=== PATIENT | male | born 1940 | race Caucasian/White ===

== ENCOUNTER 2025-06-15 12:03 | Inpatient (IN) | payer MEDICARE, OTHER ==
[~2025-06-15] VITALS: Ht 188 cm; Wt 77.1 kg
[2025-06-15] MEDS: IV NS 0.9% 500 ML BAG IV ONE (12:37)
[2025-06-15 12:43] LABS: PLATELET COUNT (AUTO) 249 K/uL (150-450); RED BLOOD CELL COUNT(AUTO) 4.05 MIL/uL (4.5-6.0); RED CELL DISTRIBUTION WIDTH 14.1 % (11.5-15.0); WHITE BLOOD COUNT (AUTO) 5.7 K/uL (4.3-11.0)
[2025-06-15 12:59] LABS: CALCIUM, SERUM 8.9 mg/dL (8.5-10.1); CREATININE 0.9 mg/dL (0.6-1.3); SODIUM SERUM 133 mmol/L (136-145); UREA NITROGEN, BLOOD 10 mg/dL (7-18)
[2025-06-15] MEDS ORDERED: ACETAMINOPHEN 325 MG TABLET PO PRN (13:30)
[2025-06-15] MEDS ORDERED: hydrALAZINE HCL IV 20 MG VIAL IV PRN (13:30)
[2025-06-15] MEDS ORDERED: MORPHINE SULFATE INJ 2 MG/ML DISP.SYRIN IV PRN (13:30)
[2025-06-15] MEDS ORDERED: ONDANSETRON HCL/PF 4 MG/2 ML VIAL IVP PRN (13:30)
[2025-06-15] MEDS ORDERED: BISA10SU11 RC (14:17)
[2025-06-15] MEDS ORDERED: PYRI100T10 PO (14:17)
[2025-06-15] MEDS ORDERED: CHOL500062 PO (14:17)
[2025-06-15] MEDS ORDERED: TAMS-12 PO (14:17)
[2025-06-15] MEDS ORDERED: ALLO300T2 PO (14:17)
[2025-06-15] MEDS ORDERED: ROSU10TA2 PO (14:17)
[2025-06-15] MEDS ORDERED: CITA20TA19 PO (14:17)
[2025-06-15] MEDS ORDERED: DENO60DI SQ (14:17)
[2025-06-15] MEDS ORDERED: ACET-2030 PO (14:17)
[2025-06-15] MEDS ORDERED: MENT113O TP (14:17)
[2025-06-15] MEDS ORDERED: MAG-135 PO (14:17)
[2025-06-15] MEDS ORDERED: CYAN500T9 PO (14:17)
[2025-06-15] MEDS ORDERED: LOPE2TAB25 PO (14:41)
[2025-06-15] MEDS ORDERED: MAGN400O6 PO (14:41)
[2025-06-15] MEDS ORDERED: POLY17PO4 PO (14:41)
[2025-06-15 15:00] VITALS: BP 125/72; TEMP 97.3; O2SAT 98
[2025-06-15] MEDS: IV NS 0.9% 1,000 ML IV SCH (16:25)
[2025-06-15 20:00] VITALS: BP 132/85; TEMP 97.7; O2SAT 97
[2025-06-15 20:30] VITALS: BP_SYST 106; BP_SYST 132; BP_SYST 135; BP_DIAS 74; BP_DIAS 81; BP_DIAS 85
[2025-06-15] MEDS: HEPARIN SODIUM, PORCINE 5000 UNITS/1 ML VIAL SQ SCH (20:36)
[2025-06-15] MEDS: TAMSULOSIN 0.4 MG CAP.SR.24H PO SCH (21:17)
[2025-06-15] MEDS: ATORVASTATIN 40 MG TABLET PO SCH (21:18)
[2025-06-16] VITALS (7 sets, daily range): BP systolic 90–150; BP diastolic 60–81; TEMP 97.7–98.2; O2SAT 94–98
[2025-06-16 07:02] LABS: PLATELET COUNT (AUTO) 225 K/uL (150-450); RED BLOOD CELL COUNT(AUTO) 3.75 MIL/uL (4.5-6.0); RED CELL DISTRIBUTION WIDTH 13.8 % (11.5-15.0); WHITE BLOOD COUNT (AUTO) 5.1 K/uL (4.3-11.0)
[2025-06-16 07:51] LABS: ASPARTATE AMINOTRANSFERASE 14.0 U/L (15-37); CALCIUM, SERUM 8.4 mg/dL (8.5-10.1); CREATININE 0.6 mg/dL (0.6-1.3); PHOSPHORUS 3.6 mg/dL (2.5-4.9); SODIUM SERUM 134.0 mmol/L (136-145); TOTAL PROTEIN, SERUM 6.7 g/dL (6.4-8.2); UREA NITROGEN, BLOOD 7.0 mg/dL (7-18)
[2025-06-16] MEDS: CITALOPRAM HYDROBROMIDE 20 MG TABLET PO SCH (09:17)
[2025-06-16] MEDS: ALLOPURINOL 100 MG TABLET PO SCH (09:17)
[2025-06-17] VITALS: BP 118/75; TEMP 97.3; O2SAT 95
[2025-06-17 04:00] VITALS: BP 126/76; TEMP 97.9; O2SAT 94
[2025-06-17 07:30] VITALS: BP 135/74; TEMP 98.1; O2SAT 96
[2025-06-17] MEDS: CLOTRIMAZOLE 1% 15 GM TUBE TP SCH (09:00)
== END 2025-06-17 13:30 | DRG 640 ==
LOC: ER 12:10 → TELE 14:02
PROVIDERS: ADMIT Internal Medicine; ATTEND Internal Medicine
DX: E86.0 Dehydration (principal); G93.41 Metabolic encephalopathy; I50.32 Chronic diastolic (congestive) heart failure; I95.1 Orthostatic hypotension; E87.1 Hypo-osmolality and hyponatremia; I11.0 Hypertensive heart disease with heart failure; L30.4 Erythema intertrigo; D64.9 Anemia, unspecified; F03.90 Unspecified dementia, unspecified severity, without behavioral disturbance, psychotic disturbance, mood disturbance, and anxiety; R73.9 Hyperglycemia, unspecified; S20.412A Abrasion of left back wall of thorax, initial encounter; S20.411A Abrasion of right back wall of thorax, initial encounter; X58.XXXA Exposure to other specified factors, initial encounter; Y93.9 Activity, unspecified; Y92.89 Other specified places as the place of occurrence of the external cause
CPT/HCPCS: 36415; 70450-TC; 71045-TC; 80048-TC; 80053-TC; 82962-TC; 83735-TC; 84100-TC; 84484-TC; 85025-TC; 87081-TC; 93307-TC; 97116-TC; 97530-TC; A4223; G0378; J1644; J7030; J7040

== ENCOUNTER 2025-06-19 08:42 | Inpatient (IN) | payer MEDICARE, OTHER ==
[~2025-06-19] VITALS: Ht 188 cm; Wt 83.5 kg
[~2025-06-19 08:42] MED LIST: ACET-2030 PO; ALLO300T2 PO; BISA10SU11 RC; CHOL500062 PO; CITA20TA19 PO; CYAN500T9 PO; DENO60DI SQ; LOPE2TAB25 PO; MAG-135 PO; MAGN400O6 PO; MENT113O TP; POLY17PO4 PO; PYRI100T10 PO; ROSU10TA2 PO; TAMS-12 PO
[2025-06-19 09:24] LABS: PLATELET COUNT (AUTO) 197 K/uL (150-450); RED BLOOD CELL COUNT(AUTO) 3.88 MIL/uL (4.5-6.0); RED CELL DISTRIBUTION WIDTH 14.1 % (11.5-15.0); WHITE BLOOD COUNT (AUTO) 8.6 K/uL (4.3-11.0)
[2025-06-19 09:52] LABS: CALCIUM, SERUM 8.6 mg/dL (8.5-10.1); CREATININE 0.8 mg/dL (0.6-1.3); SODIUM SERUM 129.0 mmol/L (136-145); UREA NITROGEN, BLOOD 6.0 mg/dL (7-18)
[2025-06-19 09:58] LABS: ASPARTATE AMINOTRANSFERASE 11.0 U/L (15-37); TOTAL PROTEIN, SERUM 6.9 g/dL (6.4-8.2)
[2025-06-19] MEDS ORDERED: ACETAMINOPHEN ES 500 MG TABLET ONE (10:33)
[2025-06-19] MEDS: ACETAMINOPHEN ES 500 MG TABLET PO ONE (10:52)
[2025-06-19] MEDS ORDERED: MORPHINE SULFATE INJ 2 MG/ML DISP.SYRIN ONE (11:11)
[2025-06-19] MEDS: MORPHINE SULFATE INJ 2 MG/ML DISP.SYRIN IV ONE (11:20)
[2025-06-19] MEDS ORDERED: LIDOCAINE 5% (PATCH) 1 EA PATCH TP ONE (12:30)
[2025-06-19] MEDS: LIDOCAINE 5% (PATCH) 1 EA PATCH TP SCH (12:42)
[2025-06-19] MEDS ORDERED: ONDANSETRON HCL/PF 4 MG/2 ML VIAL IVP PRN (13:30)
[2025-06-19] MEDS: ENOXAPARIN SODIUM 40 MG/0.4 ML DISP.SYRIN SQ SCH (14:33)
[2025-06-19 15:41] VITALS: BP 120/76; TEMP 97.8; O2SAT 96
[2025-06-19 16:12] VITALS: BP 120/76; TEMP 97.8; O2SAT 98
[2025-06-19 20:00] VITALS: BP 102/53; TEMP 97.9; O2SAT 95
[2025-06-20 07:30] VITALS: BP 125/76; TEMP 98.1; O2SAT 94
[2025-06-20 07:30] LABS: PLATELET COUNT (AUTO) 200 K/uL (150-450); RED BLOOD CELL COUNT(AUTO) 3.66 MIL/uL (4.5-6.0); RED CELL DISTRIBUTION WIDTH 14.2 % (11.5-15.0); WHITE BLOOD COUNT (AUTO) 6.9 K/uL (4.3-11.0)
[2025-06-20 08:10] LABS: CALCIUM, SERUM 8.8 mg/dL (8.5-10.1); CREATININE 0.6 mg/dL (0.6-1.3); PHOSPHORUS 3.6 mg/dL (2.5-4.9); SODIUM SERUM 136.0 mmol/L (136-145); UREA NITROGEN, BLOOD 6.0 mg/dL (7-18)
[2025-06-20] MEDS: MAGNESIUM OXIDE 400 MG TABLET PO ONE (10:24)
[2025-06-20] MEDS: ACETAMINOPHEN 325 MG TABLET PO PRN (10:33)
[2025-06-20 16:00] VITALS: BP 128/68; TEMP 98.1; O2SAT 95
[2025-06-20 20:00] VITALS: BP 110/54; TEMP 98.8; O2SAT 94
[2025-06-20 20:18] LABS: APPEARANCE,URINE CLEAR (CLEAR); BLOOD, URINE NEGATIVE Ery/uL (NEGATIVE); LEUKOCYTE ESTERASE ,URINE NEGATIVE (NEGATIVE); NITRITE, URINE NEGATIVE (NEGATIVE); UGLUCOSE NEGATIVE (NEGATIVE)
[2025-06-20 20:33] LABS: ADD URINE CULTURE NO; SQUAMOUS EPITHELIAL CELL,UR 0-2 /HPF (None Seen)
[2025-06-20 20:34] LABS: CALCIUM OXALATE CRYSTALS,UR Few /HPF (None Seen)
[2025-06-21 07:23] LABS: PLATELET COUNT (AUTO) 195 K/uL (150-450); RED BLOOD CELL COUNT(AUTO) 3.83 MIL/uL (4.5-6.0); RED CELL DISTRIBUTION WIDTH 13.8 % (11.5-15.0); WHITE BLOOD COUNT (AUTO) 6.6 K/uL (4.3-11.0)
[2025-06-21 07:30] VITALS: BP 136/91; TEMP 98.2; O2SAT 90
[2025-06-21 07:41] LABS: CALCIUM, SERUM 8.4 mg/dL (8.5-10.1); CREATININE 0.6 mg/dL (0.6-1.3); PHOSPHORUS 3.3 mg/dL (2.5-4.9); SODIUM SERUM 137.0 mmol/L (136-145); UREA NITROGEN, BLOOD 7.0 mg/dL (7-18)
[2025-06-21 08:00] VITALS: BP 136/91; TEMP 98.2; O2SAT 90
[2025-06-21 08:21] VITALS: O2SAT 98
[2025-06-21] MEDS ORDERED: LIDO30AD10 TP (11:20)
[2025-06-21 11:48] LABS: APPEARANCE,URINE CLEAR (CLEAR); BLOOD, URINE NEGATIVE Ery/uL (NEGATIVE); LEUKOCYTE ESTERASE ,URINE NEGATIVE (NEGATIVE); NITRITE, URINE NEGATIVE (NEGATIVE); UGLUCOSE NEGATIVE (NEGATIVE)
[2025-06-21 11:59] LABS: ADD URINE CULTURE NO; CALCIUM OXALATE CRYSTALS,UR Rare /HPF (None Seen); SQUAMOUS EPITHELIAL CELL,UR Few /HPF (None Seen)
[2025-06-21] MEDS: CITALOPRAM HYDROBROMIDE 20 MG TABLET PO SCH (12:08)
[2025-06-21] MEDS: CHOLECALCIFEROL 1,000 UNIT TABLET (VIT D3) PO SCH (12:08)
[2025-06-21] MEDS: ALLOPURINOL 100 MG TABLET PO SCH (12:08)
[2025-06-21] MEDS: PYRIDOXINE HCL 50 MG TABLET PO SCH (12:08)
[2025-06-21] MEDS: CYANOCOBALAMIN 500 MCG TABLET PO SCH (12:08)
[2025-06-21] MEDS ORDERED: IBUP-1953 PO (12:30)
[2025-06-21] MEDS: IBUPROFEN 400 MG TABLET PO PRN (13:16)
[2025-06-21 16:00] VITALS: BP 128/77; TEMP 98.1; O2SAT 93
[2025-06-21] MEDS: Z GUARD REMEDY 4 OZ OINT TP SCH (17:04)
[2025-06-21] MEDS: HYDROCORTISONE 1% CREAM 28.35 GM TUBE TP SCH (17:05)
[2025-06-21 20:00] VITALS: BP 140/78; TEMP 97.7; O2SAT 92
[2025-06-21] MEDS: ATORVASTATIN 10 MG TABLET PO SCH (21:12)
[2025-06-21] MEDS: TAMSULOSIN 0.4 MG CAP.SR.24H PO SCH (21:12)
[2025-06-22 00:05] VITALS: BP 132/74; TEMP 97.8; O2SAT 95
[2025-06-22 08:00] VITALS: BP 130/77; TEMP 97.3; O2SAT 96
[2025-06-22] MEDS ORDERED: PRED20TA PO (08:22)
[2025-06-22 15:57] VITALS: BP 128/82; TEMP 98.1; O2SAT 94
[2025-06-22 20:00] VITALS: BP 106/66; TEMP 97.5; O2SAT 94; O2SAT 95
[2025-06-23 07:00] VITALS: BP 127/75; TEMP 97.9; O2SAT 94
== END 2025-06-23 13:10 | DRG 554 ==
LOC: ER 08:50 → MED 13:32
PROVIDERS: ADMIT Nurse Practitioner Acute Care; ATTEND Nurse Practitioner Acute Care
DX: M16.11 Unilateral primary osteoarthritis, right hip (principal); I50.32 Chronic diastolic (congestive) heart failure; E87.1 Hypo-osmolality and hyponatremia; E86.0 Dehydration; R62.7 Adult failure to thrive; D64.9 Anemia, unspecified; E11.9 Type 2 diabetes mellitus without complications; E78.5 Hyperlipidemia, unspecified; E83.42 Hypomagnesemia; I11.0 Hypertensive heart disease with heart failure; F03.90 Unspecified dementia, unspecified severity, without behavioral disturbance, psychotic disturbance, mood disturbance, and anxiety; M25.551 Pain in right hip; L98.8 Other specified disorders of the skin and subcutaneous tissue; L25.9 Unspecified contact dermatitis, unspecified cause; R26.89 Other abnormalities of gait and mobility; Z68.23 Body mass index [BMI] 23.0-23.9, adult
CPT/HCPCS: 36415; 73700-TC; 80048-TC; 80053-TC; 81001; 83735-TC; 84100-TC; 85025-TC; 87081-TC; 87086-TC; 97110-TC; 97112-TC; 97116-TC; 97530-TC; G0378; J1650; J2270

== ENCOUNTER 2025-07-08 14:37 | Inpatient (IN) | payer MEDICARE, OTHER ==
[~2025-07-08] VITALS: Ht 185.4 cm; Wt 82.8 kg
[~2025-07-08 14:37] MED LIST changes: +IBUP-1953 PO; +LIDO30AD10 TP; +PRED20TA PO
[2025-07-08] MEDS: IV NS 0.9% 1,000 ML BAG IV ONE (15:00)
[2025-07-08] MEDS ORDERED: LEUP7.5D4 IM (15:32)
[2025-07-08 15:37] LABS: PLATELET COUNT (AUTO) 192 K/uL (150-450); RED BLOOD CELL COUNT(AUTO) 3.88 MIL/uL (4.5-6.0); RED CELL DISTRIBUTION WIDTH 13.7 % (11.5-15.0); WHITE BLOOD COUNT (AUTO) 8.4 K/uL (4.3-11.0)
[2025-07-08 15:52] LABS: INR 1.0 (0.91-1.10)
[2025-07-08 15:53] LABS: LACTIC ACID 1.7 mmol/L (0.4-2.0)
[2025-07-08 15:58] LABS: CALCIUM, SERUM 8.4 mg/dL (8.5-10.1); CREATININE 0.8 mg/dL (0.6-1.3); SODIUM SERUM 133 mmol/L (136-145); UREA NITROGEN, BLOOD 10 mg/dL (7-18)
[2025-07-08 16:03] LABS: ASPARTATE AMINOTRANSFERASE 18 U/L (15-37); TOTAL PROTEIN, SERUM 7.1 g/dL (6.4-8.2)
[2025-07-08] MEDS ORDERED: POLYETHYLENE GLYCOL 3350 17 GM POWD.PACK PO PRN (17:00)
[2025-07-08] MEDS ORDERED: BISACODYL SUPP (10 MG) 10 MG/SUPP.RECT SUPP.RECT RC PRN (17:00)
[2025-07-08] MEDS ORDERED: ONDANSETRON HCL/PF 4 MG/2 ML VIAL IVP PRN (17:00)
[2025-07-08] MEDS ORDERED: Z GUARD REMEDY 4 OZ OINT TP PRN (17:00)
[2025-07-08] MEDS ORDERED: MAGNESIUM HYDROXIDE 30 ML UDC PO PRN ×2 (17:00)
[2025-07-08] MEDS ORDERED: MAG HYDROX/AL HYDROX/SIMETH 30 ML UDC PO PRN (17:00)
[2025-07-08 17:15] VITALS: BP 113/68; TEMP 97.7; O2SAT 97
[2025-07-08 20:00] VITALS: BP 109/72; TEMP 97.9; O2SAT 95
[2025-07-08 20:15] VITALS: BP 165/96; TEMP 97.2; O2SAT 99
[2025-07-08] MEDS: TAMSULOSIN 0.4 MG CAP.SR.24H PO SCH (21:21)
[2025-07-08] MEDS: ATORVASTATIN 40 MG TABLET PO SCH (21:21)
[2025-07-09] VITALS (9 sets, daily range): BP systolic 89–140; BP diastolic 59–78; TEMP 97.5–98.5; O2SAT 95–97
[2025-07-09 07:35] LABS: CALCIUM, SERUM 8.8 mg/dL (8.5-10.1); CREATININE 0.8 mg/dL (0.6-1.3); PHOSPHORUS 3.4 mg/dL (2.5-4.9); SODIUM SERUM 136.0 mmol/L (136-145); UREA NITROGEN, BLOOD 12.0 mg/dL (7-18)
[2025-07-09 07:50] LABS: PLATELET COUNT (AUTO) 221 K/uL (150-450); RED BLOOD CELL COUNT(AUTO) 3.90 MIL/uL (4.5-6.0); RED CELL DISTRIBUTION WIDTH 13.9 % (11.5-15.0); WHITE BLOOD COUNT (AUTO) 7.4 K/uL (4.3-11.0)
[2025-07-09 08:03] LABS: LDL 61.0 mg/dL (0-99)
[2025-07-09] MEDS: ALLOPURINOL 100 MG TABLET PO SCH (08:12)
[2025-07-09] MEDS: PANTOPRAZOLE 40 MG TABLET.DR PO SCH (08:12)
[2025-07-09] MEDS: MIDODRINE HCL (5MG) 5 MG TABLET PO SCH (08:13)
[2025-07-09] MEDS: CYANOCOBALAMIN 500 MCG TABLET PO SCH (08:13)
[2025-07-09] MEDS: CITALOPRAM HYDROBROMIDE 20 MG TABLET PO SCH (08:13)
[2025-07-09] MEDS: IV NS 0.9% 1,000 ML IV PRN ×2 (08:23→15:03)
[2025-07-10 04:04] VITALS: BP_SYST 107; BP_SYST 128; BP_DIAS 71; BP_DIAS 86; TEMP 97.7; O2SAT 96
[2025-07-10] MEDS: ACETAMINOPHEN 325 MG TABLET PO PRN (04:33)
[2025-07-10 08:00] VITALS: BP 133/64; TEMP 97.7; O2SAT 97
[2025-07-10] MEDS ORDERED: MIDO5TAB4 PO (11:42)
[2025-07-10 13:05] VITALS: BP 111/62
== END 2025-07-10 18:00 | disposition home health service (06) | DRG 73 ==
LOC: ER 14:39 → TELE 16:44
PROVIDERS: ADMIT Nurse Practitioner Acute Care; ATTEND Nurse Practitioner Acute Care
DX: G90.89 Other disorders of autonomic nervous system (principal); G93.41 Metabolic encephalopathy; I50.32 Chronic diastolic (congestive) heart failure; E86.0 Dehydration; I95.1 Orthostatic hypotension; E78.5 Hyperlipidemia, unspecified; I11.0 Hypertensive heart disease with heart failure; K59.00 Constipation, unspecified; E11.9 Type 2 diabetes mellitus without complications; E86.1 Hypovolemia; N40.0 Benign prostatic hyperplasia without lower urinary tract symptoms; R53.1 Weakness; I35.8 Other nonrheumatic aortic valve disorders; F32.A Depression, unspecified; F03.90 Unspecified dementia, unspecified severity, without behavioral disturbance, psychotic disturbance, mood disturbance, and anxiety
CPT/HCPCS: 36415; 70450-TC; 71045-TC; 80048-TC; 80061-TC; 80076-TC; 83605-TC; 83735-TC; 84100-TC; 84443-TC; 84484-TC; 85025-TC; 85730-TC; 86850-TC; 87040-TC; 93880-TC; 97110-TC; 97116-TC; 97530-TC; 97535-TC; A4223; G0378; J7030